=== PATIENT | female | born 1955 | race Caucasian/White ===

== ENCOUNTER → 2017-11-17 12:33 | Outpatient (CLI) | payer OTHER | END | disposition home or self-care (01) | LOC: D.CT 12:33 | DX: R93.8 Abnormal findings on diagnostic imaging of other specified body structures (principal) ==

== ENCOUNTER 2021-01-27 14:02 | Outpatient (CLI) | payer MEDICARE ==
[~2021-01-27] VITALS: Ht 172.7 cm; Wt 80.9 kg
[2021-01-27 14:19] VITALS: BP 156/77; Ht 172.7 cm; Wt 80.9 kg
== END 2021-01-27 14:22 | disposition home or self-care (01) ==
LOC: D.OPS 14:02
PROVIDERS: ATTEND Family Medicine
DX: M81.0 Age-related osteoporosis without current pathological fracture (principal)